=== PATIENT | male | born 1960 | race Caucasian/White ===

== ENCOUNTER 2016-12-06 19:56 | Observation (INO) ==
[~2016-12-06 19:56] MED LIST: NS 1,000 ML IV ONE
[2016-12-06 20:25] LABS: URINE CULTURE NEEDED? NO; URINE MICRO REVIEW NEEDED? NO; URINE SOURCE CATH
[2016-12-06 20:41] LABS: BILIRUBIN URINE NEGATIVE (NEGATIVE); BLOOD URINE NEGATIVE (NEGATIVE); COLOR YELLOW; GLUCOSE URINE 300 mg/dL (NEGATIVE); LEUKOCYTES URINE NEGATIVE (NEGATIVE); NITRITE URINE NEGATIVE (NEGATIVE); PH URINE 5.5; PROTEIN URINE 50 mg/dL (NEGATIVE); TURBIDITY URINE HAZY (CLEAR); UROBILINOGEN URINE 2 mg/dL (NORMAL)
--- NOTE | 2016-12-06 20:41 | Diag Imaging Result Doc PS360 ---
EXAM: CHEST-PORTABLE HISTORY: ams/overdose TECHNIQUE: Portable AP COMPARISON: 08/25/2014 FINDINGS: The lungs are well expanded. The heart is not enlarged. The vessels are not distended. No pneumonia. No pleural effusions identified. IMPRESSION: Negative chest. Electronically signed by Jose Daniel Gutierrez 12/06/2016 8:39 PM
[2016-12-06 20:44] LABS: INR 1.04; PTT 26.6 Seconds (22.0-36.0); UR EPITHELIAL CELLS <10 /HPF (<10); URINE BACTERIA NEGATIVE /HPF; URINE RBC <10 /HPF (<10); URINE WBC <10 /HPF (<10)
[2016-12-06 20:45] LABS: ALBUMIN 3.8 g/dL (3.5-5.0); BASO% 0.4 % (0.0-0.8); CALCIUM 8.4 mg/dL (8.8-10.2); EOS# 0.05 X1000 (0.0-0.7); EOS% 0.4 % (0.0-10.0); HEMATOCRIT 39.1 % (42.0-52.0); HEMOGLOBIN 13.3 g/dL (14.0-18.0); IMM GRAN# 0.14 X1000 (0.0-0.04); IMM GRAN% 1.2 % (0.0-0.5); LYMPH# 0.65 X1000 (1.2-3.4); LYMPH% 5.7 % (20.5-51.1); MANUAL DIFF NEEDED? NO; MCH 32.4 PG (27-31); MCV 95.1 FL (81-99); MONO# 0.57 X1000 (0.11-0.59); MPV 9.3 FL (7.4-10.4); NEUT% 87.3 % (42.2-75.2); PLT 426 X1000 (130-400); POTASSIUM 4.2 mmol/L (3.5-5.1); RBC 4.11 XMIL (4.7-6.1); TOTAL BILIRUBIN 0.33 mg/dL (0.20-1.00); TOTAL PROTEIN 7.4 g/dL (6.3-8.3)
[2016-12-06 20:51] LABS: UR AMPHETAMINES QUAL PRESUMPTIVE POSITIVE (NONE DETECT); UR BARBITUATES QUAL NONE DETECTED (NONE DETECT); UR BENZODIAZEPIN QUAL NONE DETECTED (NONE DETECT); UR CANNABINOIDS QUAL PRESUMPTIVE POSITIVE (NONE DETECT); UR COCAINE QUAL NONE DETECTED (NONE DETECT); UR METHADONE QUAL NONE DETECTED (NONE DETECT); UR OPIATES QUAL PRESUMPTIVE POSITIVE (NONE DETECT); UR OXYCODONE QUAL NONE DETECTED (NONE DETECT); UR PCP QUAL NONE DETECTED (NONE DETECT)
--- NOTE | 2016-12-06 21:19 | PROVIDER DOCUMENTATION ---
HPI-General Adult - General Chief Complaint: Overdose Stated Complaint: overdose Time Seen by Provider: 12/06/16 19:58 Source: patient, EMS Allergies/Adverse Reactions: Patient Allergies Allergy/AdvReac Type Severity Reaction Status Date / Time cephalexin monohydrate * Allergy Intermediate HIVES Verified 12/06/16 20:20 [From Keflex] Sulfa (Sulfonamide AdvReac Intermediate ABDOMINAL Verified 12/06/16 20:20 Antibiotics) PAIN [Sulfa(Sulfonamide Antibiotics)] Home Medications: Home Medication List Medication Instructions Recorded Confirmed Last Taken Type NK [No Home Medications] 12/06/16 12/06/16 Unknown History - History of Present Illness -Gen Adult Nature of Presenting Problems: pt found unresponsive by EMS. cyanotic. An IO was started and narcan was administered and he became more alert. He continues to deny illicits but does give a history of polysubstance abuse. Denies chest pain, dyspnea. He is complaining of left leg pain at IO site. Location of Pain/Injury: reports: lower extremity Pain Radiation: reports: no radiation Quality of Pain: reports: aching Severity: reports: moderate Onset/Duration: reports: just prior to arrival Timing: reports: still present Context/Activities at Onset: reports: none Modifying Factors: improves with: nothing Similar Symptoms Previously?: No Recently seen or treated by another doctor?: No Review of Systems - Adult - REVIEW OF SYSTEMS - ADULT Constitutional: reports: no symptoms reported. denies: chills, fever Eyes: reports: no symptoms reported Ears, Nose, Mouth & Throat: reports: no symptoms reported Cardiovascular: reports: no symptoms reported, syncope. denies: chest pain, orthopnea, palpitations Respiratory: reports: no symptoms reported. denies: cough, hemoptysis, shortness of breath, wheezing Gastrointestinal: reports: no symptoms reported. denies: abdominal pain, nausea , vomiting Genitourinary: reports: no symptoms reported Musculoskeletal: reports: no symptoms reported. denies: back pain Integumentary: reports: no symptoms reported Neurological: reports: no symptoms reported. denies: headache/migraines, loss of balance, seizure Psychiatric: reports: no symptoms reported Endocrine: reports: no symptoms reported Hematologic/Lymphatic: reports: no symptoms reported Allergic/Immunologic: reports: no symptoms reported All Other Systems: Reviewed and Negative Past History - Adult - PAST MEDICAL HISTORY-ADULT Review of Records: reports: Old Records Reviewed, Nursing Assessment Review, Medications Reviewed, Social history reviewed & non-contributory. Major Childhood Illnesses: reports: denies history Cardiovascular: reports: HTN, hyperlipidemia Respiratory: reports: bronchitis, COPD Gastrointestinal: reports: denies history Obstetrical/Gynecological: reports: denies history Genitourinary: reports: denies history Musculoskeletal: reports: denies history Neurological: reports: denies history Psychiatric: reports: denies history Endocrine/Immune: reports: thyroid disorder Other Conditions: reports: denies history - PRIOR SURGERIES/PROCEDURES Surgical/Procedure History: reports: appendectomy, hernia repair - PRIOR HOSPITALIZATIONS Prior Hospitalizations: reports: for other non-related - IMMUNIZATION STATUS Childhood Immunizations: See Nurse Assessment Flu Vaccine: See Nurse Assessment - FAMILY HISTORY Family History: reviewed, not pertinent, CAD over 55 yo Physical Exam-General - PHYSICAL EXAM-ADULT Initial Vital Signs Reviewed: Yes - CONSTITUTIONAL General Appearance: appears well, alert, no apparent distress - EYES Eyes: PERRL/EOMI, pink conjunctivae - HEAD, EARS, NOSE, MOUTH & THROAT HENMT: normocephalic/atraumatic, moist mucous membranes - NECK Neck: non-tender, full range of motion, supple - RESPIRATORY Respiratory: chest non-tender, lungs clear, normal breath sounds - CARDIOVASCULAR Cardiovascular: normal peripheral pulses, regular rate, rhythm, no edema - GASTROINTESTINAL (ABDOMEN) Abdominal Exam: normal bowel sounds, non tender, soft - LYMPHATIC Lymphatic: no adenopathy - MUSCULOSKELETAL Back Exam: normal inspection Extremity: normal range of motion, non-tender Peripheral Pulses: radial (R): 2+, radial (L): 2+ - SKIN Integumentary: normal color, normal turgor, warm/dry - 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 negative: aphasia, motor weakness - PSYCHIATRIC Psych/Mental Status: normal mood/affect, oriented x 3 Progress - PLAN OF CARE/RESULTS Progress/Plan/Lab Results: Vital Signs - 8 hr 12/06/16 20:03 Temperature 98.9 F Pulse Rate 94 H Respiratory Rate 15 Blood Pressure 125/78 O2 Sat by Pulse Oximetry 96 Laboratory Results - last 24 hr 12/06/16 12/06/16 12/06/16 20:03 20:03 20:03 WBC RBC Hgb Hct MCV MCH MCHC RDW Std Deviation Plt Count MPV Immature Gran % (Auto) Neut % (Auto) Lymph % (Auto) Burke % (Auto) Eos % (Auto) Baso % (Auto) Immature Gran # (Auto) Neut # (Auto) Lymph # (Auto) Burke # (Auto) Eos # (Auto) Baso # (Auto) PT INR PTT (Actin FS) Sodium Potassium Chloride Carbon Dioxide Anion Gap BUN Creatinine Estimated GFR/1.73 m2 BUN/Creatinine Ratio Glucose Calculated Osmolality Calcium Total Bilirubin AST ALT Alkaline Phosphatase Creatine Kinase Troponin T Total Protein Albumin Globulin Albumin/Globulin Ratio Urine Source CATH Urine Color YELLOW Urine Turbidity HAZY Urine pH 5.5 Ur Specific [place] 1.020 Urine Protein 50 A Ur Glucose (Stick) 300 A Ur Ketones (Stick) NEGATIVE Urine Blood NEGATIVE Urine Nitrite NEGATIVE Urine Bilirubin NEGATIVE Urobilinogen Dipstick 2 A Urine Leukocytes NEGATIVE Urine WBC (Auto) <10 Urine RBC (Auto) <10 U Epithel Cells (Auto) <10 Urine Bacteria (Auto) NEGATIVE Urine Opiates Screen PRESUMPTIVE POSITIVE A Ur Oxycodone Screen NONE DETECTED Ur Methadone, Qual NONE DETECTED Ur Barbiturates Screen NONE DETECTED Ur Phencyclidine Scrn NONE DETECTED Ur Amphetamines Screen PRESUMPTIVE POSITIVE A U Benzodiazepines Scrn NONE DETECTED Urine Cocaine Screen NONE DETECTED U Cannabinoids Screen PRESUMPTIVE POSITIVE A Plasma/Serum Ethyl Alc 12/06/16 12/06/16 12/06/16 20:03 20:03 20:03 WBC 11.35 H RBC 4.11 L Hgb 13.3 L Hct 39.1 L MCV 95.1 MCH 32.4 H MCHC 34.0 RDW Std Deviation 14.4 Plt Count 426 H MPV 9.3 Immature Gran % (Auto) 1.2 H Neut % (Auto) 87.3 H Lymph % (Auto) 5.7 L Burke % (Auto) 5.0 Eos % (Auto) 0.4 Baso % (Auto) 0.4 Immature Gran # (Auto) 0.14 H Neut # (Auto) 9.89 H Lymph # (Auto) 0.65 L Burke # (Auto) 0.57 Eos # (Auto) 0.05 Baso # (Auto) 0.05 PT 11.0 INR 1.04 PTT (Actin FS) 26.6 Sodium 139 Potassium 4.2 Chloride 100 Carbon Dioxide 27 Anion Gap 12 BUN 16 Creatinine 1.3 H Estimated GFR/1.73 m2 57 BUN/Creatinine Ratio 12 Glucose 247 H Calculated Osmolality 287 Calcium 8.4 L Total Bilirubin 0.33 AST 79 H ALT 110 H Alkaline Phosphatase 125 H Creatine Kinase 67 Troponin T Total Protein 7.4 Albumin 3.8 Globulin 3.6 Albumin/Globulin Ratio 1.1 Urine Source Urine Color Urine Turbidity Urine pH Ur Specific [place] Urine Protein Ur Glucose (Stick) Ur Ketones (Stick) Urine Blood Urine Nitrite Urine Bilirubin Urobilinogen Dipstick Urine Leukocytes Urine WBC (Auto) Urine RBC (Auto) U Epithel Cells (Auto) Urine Bacteria (Auto) Urine Opiates Screen Ur Oxycodone Screen Ur Methadone, Qual Ur Barbiturates Screen Ur Phencyclidine Scrn Ur Amphetamines Screen U Benzodiazepines Scrn Urine Cocaine Screen U Cannabinoids Screen Plasma/Serum Ethyl Alc 12/06/16 20:03 WBC RBC Hgb Hct MCV MCH MCHC RDW Std Deviation Plt Count MPV Immature Gran % (Auto) Neut % (Auto) Lymph % (Auto) Burke % (Auto) Eos % (Auto) Baso % (Auto) Immature Gran # (Auto) Neut # (Auto) Lymph # (Auto) Burke # (Auto) Eos # (Auto) Baso # (Auto) PT INR PTT (Actin FS) Sodium Potassium Chloride Carbon Dioxide Anion Gap BUN Creatinine Estimated GFR/1.73 m2 BUN/Creatinine Ratio Glucose Calculated Osmolality Calcium Total Bilirubin AST ALT Alkaline Phosphatase Creatine Kinase Troponin T < 0.010 Total Protein Albumin Globulin Albumin/Globulin Ratio Urine Source Urine Color Urine Turbidity Urine pH Ur Specific [place] Urine Protein Ur Glucose (Stick) Ur Ketones (Stick) Urine Blood Urine Nitrite Urine Bilirubin Urobilinogen Dipstick Urine Leukocytes Urine WBC (Auto) Urine RBC (Auto) U Epithel Cells (Auto) Urine Bacteria (Auto) Urine Opiates Screen Ur Oxycodone Screen Ur Methadone, Qual Ur Barbiturates Screen Ur Phencyclidine Scrn Ur Amphetamines Screen U Benzodiazepines Scrn Urine Cocaine Screen U Cannabinoids Screen Plasma/Serum Ethyl Alc Orders Category Date Time Status Cardiac Monitoring DIRECTED Care 12/06/16 19:55 Active Alatorre Cath Insertion ORDERED Care 12/06/16 20:21 Active Oxygen Therapy- ED Nursing DIRECTED Care 12/06/16 19:55 Active Saline Loc NOW Care 12/06/16 19:55 Active CHEST-PORTABLE [RAD] Stat Exams 12/06/16 19:54 Completed ALCOHOL BLOOD Stat Lab 12/06/16 20:03 Completed CBC WITH ELECTRONIC DIFF [HEME] Stat Lab 12/06/16 20:03 Completed CK PROFILE [SP CHEM] Stat Lab 12/06/16 20:03 Completed COMPREHENSIVE METABOLIC PANEL [CHEM] Stat Lab 12/06/16 20:03 Completed PROTIME WITH INR [COAG] Stat Lab 12/06/16 20:03 Completed PTT [COAG] Stat Lab 12/06/16 20:03 Completed TROPONIN T Stat Lab 12/06/16 20:03 Completed UA NIMS W/REFLEX CULT [URINALYSIS] Stat Lab 12/06/16 20:03 Completed URINE DRUG SCREEN Stat Lab 12/06/16 20:03 Completed 0.9% Sodium Chloride Inj [Ns] 1,000 ml Med 12/06/16 19:54 Discontinued IV 999 mls/hr EKG [EKG] Stat Ther 12/06/16 19:55 Ordered case and plan of care discussed with Dr. Kerr. Result Diagrams: 12/06/16 20:03 12/06/16 20:03 - XRAY 1 XRAY Study: Chest Impression: Normal, See EMR Report - CONSULTS/PCP/HOSPITALIST Notification #1 *Consult/PCP/Hospitalist*: Dr. Scott Time Discussed: 21:00 Consult Disposition: Admit Departure - Departure Date of Disposition Decision: 12/06/16 Time of Disposition Decision: 21:17 DIAGNOSIS: Unresponsive episode, Polysubstance abuse, Hyperglycemia Disposition: ADMITTED INPATIENT 09 Certified Medical Emergency: Emergent Condition: Stable - Critical Care Note This patient required my direct & personal management of CC.: No Attestation - Physician/ GLENNA Attestation Patient care was provided by Advanced Practice Provider:: Yes Advanced Practice Provider:: Isaac Espinosa Advanced Practice Provider documentation review:: The Mid-level provider documentation, treatment plan and medical decision making was reviewed by the physician who agrees with all treatment and medical decision making by the MLP.
[2016-12-06] MEDS ORDERED: NS 1,000 ML IV ONE (22:28)
[2016-12-06] MEDS ORDERED: TYLENOL PO PRN (22:40)
[2016-12-06] MEDS ORDERED: ZOFRAN IV PRN (22:40)
[2016-12-06] MEDS ORDERED: LOVENOX SUBQ SCH (23:00)
[2016-12-06] MEDS: NS 1,000 ML IV SCH (23:27)
[2016-12-07] MEDS: NS 1,000 ML IV SCH (04:29)
[2016-12-07 05:08] LABS: MANUAL DIFF NEEDED? NO
[2016-12-07 05:15] LABS: BASO% 0.2 % (0.0-0.8); EOS# 0.03 X1000 (0.0-0.7); EOS% 0.3 % (0.0-10.0); HEMATOCRIT 33.9 % (42.0-52.0); HEMOGLOBIN 11.5 g/dL (14.0-18.0); IMM GRAN# 0.06 X1000 (0.0-0.04); IMM GRAN% 0.6 % (0.0-0.5); LYMPH# 2.15 X1000 (1.2-3.4); LYMPH% 20.2 % (20.5-51.1); MCH 32.7 PG (27-31); MCHC 33.9 g/dL (33-37); MCV 96.3 FL (81-99); MONO# 0.72 X1000 (0.11-0.59); MONO% 6.8 % (1.7-9.3); MPV 9.3 FL (7.4-10.4); NEUT% 71.9 % (42.2-75.2); PLT 318 X1000 (130-400); RBC 3.52 XMIL (4.7-6.1)
[2016-12-07 06:09] LABS: AGAP 7; BUN 16 mg/dL (8-22); CALCIUM 8.4 mg/dL (8.8-10.2); CHLORIDE 107 mmol/L (98-107); COSMO 282; POTASSIUM 4.4 mmol/L (3.5-5.1); SODIUM 141 mmol/L (136-145); TCO2 27 mmol/L (25-35)
--- NOTE | 2016-12-07 07:14 | HISTORY AND PHYSICAL ---
PRIMARY CARE PHYSICIAN: None. HISTORY OF PRESENT ILLNESS: Patient is a 55-year-old, male with past medical history of hypothyroidism, hypertension, who basically was brought to the emergency department because he was found unresponsive by EMS as per ER doctor. Patient does not recall anything. He remembers that he was playing with his dog, David, and then he does not does not remember anything, and he remembers waking up here. He reluctantly denies using any drugs. He reports that he was using cocaine and heroin many, many years ago but he quit like 20 years ago. He reports using some marijuana occasionally. In any case, patient while he was being transferred over here en route to the hospital, he received doses of Narcan (naloxone) then he immediately woke up. Patient is being admitted to the hospital for observation as we do not know exactly how much opiates did he take. PAST MEDICAL HISTORY: 1. Hypertension. 2. Hypothyroidism. 3. Herniated disk. 4. Previous cellulitis of left arm. 5. MRSA infection with apparently endocarditis. PAST SURGICAL HISTORY: 1. Appendectomy. 2. Abdominal hernia repair. 3. Hemorrhoids. ALLERGIES: Patient is allergic to sulfa drugs. SOCIAL HISTORY: Patient reports smoking 1-2 packs per day, drinking occasionally beer, and also using marijuana occasionally, but no other drugs. REVIEW OF SYSTEMS: All symptoms are related to H and P. PHYSICAL EXAMINATION: VITALS: Temperature 98.5 degrees, heart rate 70, respiratory rate 16, blood pressure 121/90, O2 saturation 100% 2 L nasal cannula. GENERAL EXAMINATION: This is a 56-year-old male, lying in bed, in no acute distress. HEENT: Head is normocephalic, atraumatic. Anicteric sclerae. Pale conjunctivae. Mucous membranes moist. NECK: Supple. No JVD noted. No carotid bruits. No lymphadenopathy. No thyromegaly. CARDIOVASCULAR: S1, S2 heard. No murmurs, gallops, or rubs. Regular rate and rhythm. RESPIRATORY: Clear bilaterally to auscultation. No work of breathing or using accessory muscles. ABDOMEN: Soft, nontender to palpation. Bowel sounds present. No organomegaly. EXTREMITIES: No clubbing, cyanosis, or edema. Peripheral pulses present in both legs. NEUROLOGICAL: Patient is alert and oriented x3. Moves 4 extremities. Cranial nerves 2-12 grossly normal. LABORATORY DATA: White cell count 11.35, hemoglobin 13.3, hematocrit 39.1, platelets 426,000. BMP is unremarkable, except 1.3 creatinine and glucose 247. ASSESSMENT/PLAN: 1. Altered mental status. 2. Acute kidney injury. 3. Hyperglycemia. 4. Hypothyroidism. PLAN: Patient is going to be admitted to the hospital because of altered mental status, most likely related to drug abuse. Patient denies using any drugs, but the UDS is positive for opiates, amphetamines, and marijuana. Patient apparently last time we suspected this patient was using drugs, but keeps denying everything. In any case, because we do not know exactly how much opiates he takes, we would prefer to keep him in the hospital as an observation. We are going to send him to the intensive care unit on Narcan (naloxone) drip in case this patient falls asleep again. Also, we are going to provide aggressive fluid resuscitation and in this way will help this patient to washout all the drugs in the system. For acute kidney injury, that is mild, 1.3. We are going to provide IV fluids and we will check BMP tomorrow. For hyperglycemia, I think this patient may have received glucose given by EMS considering that when they arrived at the scene they noted that this patient's glucose was low. In any case, we are going to check BMP daily and we will go from there. If this patient tomorrow is feeling fine, not requiring any Narcan (naloxone) drip with IV fluids, care of this patient will be good to be sent home. cc: Chalo Guzman MD
[2016-12-07 08:27] VITALS: BP 104/67
[2016-12-07] MEDS ORDERED: PRILOSEC PO SCH (09:00)
--- NOTE | 2016-12-08 07:54 | DISCHARGE SUMMARY ---
ADMISSION DATE: 12/06/2016 DISCHARGE DATE: 12/07/2016 CONSULTATION DURING THIS ADMISSION: None. INVASIVE PROCEDURES DONE DURING THIS ADMISSION: None. IMAGING STUDIES OF SIGNIFICANCE: A chest x-ray was done on presentation which was negative. DISPOSITION: Home. FOLLOW-UP: Will be with the [facility] system. ADMISSION DIAGNOSES: 1. Altered mental status. 2. Acute kidney injury. 3. Hyperglycemia. 4. Hypothyroidism. DISCHARGE DIAGNOSES: 1. Altered mental status secondary to toxic encephalopathy. 2. Heroin abuse. 3. Acute kidney injury, resolved. 4. Hypothyroidism with elevated thyroid-stimulating hormone consistent with insufficient thyroid supplementation (patient is noncompliance). 5. Transaminitis. DISCHARGE MEDICATIONS: None. Patient is already on, according to him, [facility] so we did not write any for him at this time. PRESENTING COMPLAINT: Altered mental status. HISTORY OF PRESENTING COMPLAINT: Mr. Garcia was brought in yesterday by EMS. According to the story he was found unresponsive by a friend who called EMS. Upon arriving, EMS gave him a dose of Narcan which he improved. They brought him to the emergency department where he was fully asleep. He got another dose and he improved. Patient was admitted for further medical care. This morning he is fully awake. He was eating some breakfast. He wants to go home. There is no acute neurological deficit. The patient's lab work has been reviewed. His toxicology was positive for opioids, amphetamine, and cannabinoids. He is known to have polysubstance abuse. Patient also is now attributing this to the of his , which I think he will need some counseling on an outpatient basis. I reviewed all of his lab work. His vitals are stable. The patient is completely asymptomatic at this point in time and he has been able to tolerate his food, so we are going to discharge. [facility]. He is also advised to follow up with a counselor about the of his . But more than everything, we spent about 15-20 minutes talking about polysubstance abuse and heroin abuse and how that can impact his health. TIME SPENT FOR DISCHARGE: 37 minutes. cc: Javier Wells MD
== END 2016-12-07 13:00 | disposition home or self-care (01) ==
LOC: ED 19:56 → ICU 19:56 → SUATTDRO 22:39 → ICU 23:15
PROVIDERS: ATTEND Internal Medicine